=== PATIENT | female | born 1935 | race Hispanic/Latino ===

== ENCOUNTER 2017-07-11 10:07 | Outpatient (CLI) | payer MEDICARE ==
--- NOTE | 2017-07-11 13:03 | Ultrasound Report ---
RIGHT UPPER QUADRANT ABDOMINAL ULTRASOUND: 07/11/17 10:07:00 CLINICAL: Elevated liver function tests. FINDINGS: High-resolution ultrasound demonstrated a small liver with predominantly normal echogenicity. Heterogeneous increased echogenicity of the lateral segment of the left lobe has an irregular shape and measures approximately 4.7 x 3.5 cm.. Normal hepatic vasculature and inferior vena cava. Normally distended gallbladder with no stones. The gall bladder wall measures 1.0 mm in thickness. Normal intrahepatic and extra hepatic bile ducts. The common bile duct measures 5.0 mm diameter. The pancreas is fairly well imaged and normal. Normal upper abdominal aorta. The right kidney measures 7.9 x 4.3 x 3.5cm.Mild increased echogenicity of the kidney. A 1 cm cyst in the midportion of the right kidney. No renal mass or calculus. The renal collecting system and ureter are nondilated. No ascites or mass. IMPRESSION: 1. Small liver with heterogeneous left hepatic echogenicity suggesting possible focal fat or other mass. Consider further imaging with either CT or MRI. 2. No cholelithiasis. 3. Medical renal disease with increased echogenicity of the right kidney. 4. No signs of acute or chronic pancreatitis.
== END 2017-07-11 10:08 | disposition home or self-care (01) ==
LOC: SPVWC 10:07
PROVIDERS: ATTEND Internal Medicine
DX: N28.1 Cyst of kidney, acquired (principal); R79.89 Other specified abnormal findings of blood chemistry
CPT/HCPCS: 76705